=== PATIENT | male | born 1955 | race Caucasian/White ===

== ENCOUNTER 2017-07-26 07:49 | Emergency (ER) | payer BC ==
[2017-07-26 08:02] VITALS: BP 142/93
--- NOTE | 2017-07-26 08:14 | UC ---
Throat Pain/Nasal [place] HPI - HPI Summary HPI Summary: sore throat x 1 week right side sore throat and jaw pain recent tooth extraction right upper molar no fever, no chills, no cough or nasal congestion - History of Current Complaint Chief Complaint: UCGeneralIllness Stated Complaint: SORE THROAT, HEADACHE Time Seen by Provider: 07/26/17 07:55 Hx Obtained From: Patient Onset/Duration: Gradual Onset, Lasting Days - 3, Still Present Severity: Moderate Cough: None Associated Signs & Symptoms: Negative: Dysphagia, FB Sensation, Drooling, Wheezing, Hoarseness, Sinus Discomfort, Nasal Discharge, Fever, Vomiting, Rash - Allergies/Home Medications Allergies/Adverse Reactions: Allergies Allergy/AdvReac Type Severity Reaction Status Date / Time environmental allergies Allergy Congestion Uncoded 07/26/17 08:11 Home Medications: Home Medications Ibuprofen TAB* [Advil TAB*] 400 mg PO Q6H PRN 07/26/17 [History Confirmed ] PMH/Surg Hx/FS Hx/Imm Hx Previously Healthy: Yes - Surgical History Surgical History: Yes Surgery Procedure, Year, and Place: Left Inguinal Herniorrhaphy, 2016, [place] ; Right arm bicep tendon 2010. Right knee 2004 - Family History Known Family History: Negative: Diabetes - Social History Alcohol Use: None Substance Use Type: None Smoking Status (MU): Never Smoked Tobacco - Immunization History Most Recent Influenza Vaccination: Not the Season Review of Systems Constitutional: Negative Skin: Negative Eyes: Negative ENT: Negative Respiratory: Negative Cardiovascular: Negative Is Patient Immunocompromised?: No All Other Systems Reviewed And Are Negative: Yes Physical Exam Triage Information Reviewed: Yes Appearance: Well-Appearing, No Pain Distress, Well-Nourished Vital Signs: Initial Vital Signs Temp 97.7 F 07/26/17 07:55 Pulse 76 07/26/17 07:55 Resp 16 07/26/17 07:55 BP 142/93 07/26/17 07:55 Pulse Ox 99 07/26/17 07:55 Vital Signs Reviewed: Yes Eyes: Positive: Conjunctiva Clear ENT: Positive: Normal ENT inspection, Hearing grossly normal, Pharynx normal, Other: - tenderness right TMJ Dental Exam: Normal Neck exam: Normal Neck: Positive: Supple, Nontender Respiratory: Positive: Chest non-tender, Lungs clear, Normal breath sounds Cardiovascular: Positive: RRR, No Murmur, Pulses Normal Skin Exam: Normal Throat Pain/Nasal Course/Dx - Differential Dx/Diagnosis Provider Diagnoses: TMJ Discharge - Discharge Plan Condition: Stable Disposition: HOME Prescriptions: Naproxen [Naproxen 500 mg] 500 mg PO BID #20 tab Patient Education Materials: Temporomandibular Disorder (ED) Referrals: Jr BUSH,Mitchel Bass [Primary Care Provider] - 7 Days
== END 2017-07-26 08:20 | disposition home or self-care (01) ==
LOC: UCCORT 07:49
DX: M26.601 Right temporomandibular joint disorder, unspecified (principal)
CPT/HCPCS: 99212; G0463

== ENCOUNTER 2018-06-07 08:28 | Emergency (ER) | payer BC ==
[2018-06-07 09:15] VITALS: BP 152/91
--- NOTE | 2018-06-07 10:27 | UC ---
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 Productive cough with clear secretions. " Has significant history of sinus infections. Usually needs amoxicillin. Teeth hurt. More pain when bending forward. Denies fevers and chills. No wheezing. Cough is not significant. Feels fine otherwise. - - History of Current Complaint Chief Complaint: UCRespiratory Stated Complaint: SINUS CONGESTION Time Seen by Provider: 06/07/18 10:06 Pain Intensity: 0 - Allergies/Home Medications Allergies/Adverse Reactions: Allergies Allergy/AdvReac Type Severity Reaction Status Date / Time environmental allergies Allergy Congestion Uncoded 06/07/18 09:10 Home Medications: Home Medications diphenhydrAMINE HCl [Benadryl Allergy] 25 mg PO ONCE PRN 06/07/18 [History Confirmed 06/07/18] PMH/Surg Hx/FS Hx/Imm Hx Previously Healthy: Yes - Surgical History Surgical History: Yes Surgery Procedure, Year, and Place: Left Inguinal Herniorrhaphy, 2016, [place] ; Right arm bicep tendon 2010. Right knee 2004 - Family History Known Family History: Negative: Diabetes - Social History Alcohol Use: None Substance Use Type: None Smoking Status (MU): Never Smoked Tobacco - Immunization History Most Recent Influenza Vaccination: Not the 2016/2017 Season Review of Systems Constitutional: Negative Skin: Negative Eyes: Negative ENT: Nasal Discharge, Sinus Congestion, Sinus Pain/Tenderness Respiratory: Cough Cardiovascular: Negative Gastrointestinal: Negative Genitourinary: Negative Motor: Negative Neurovascular: Negative Musculoskeletal: Negative Neurological: Negative Psychological: Negative Is Patient Immunocompromised?: No All Other Systems Reviewed And Are Negative: Yes Physical Exam Triage Information Reviewed: Yes Appearance: Well-Appearing, No Pain Distress, Well-Nourished - Very pleasant Vital Signs: Initial Vital Signs Temp 98 F 06/07/18 09:11 Pulse 80 06/07/18 09:11 Resp 14 06/07/18 09:11 BP 152/91 06/07/18 09:11 Pulse Ox 99 06/07/18 09:11 Vital Signs Reviewed: Yes Eye Exam: Normal ENT Exam: Normal ENT: Positive: Nasal congestion, TMs normal, Sinus tenderness. Negative: Pharyngeal erythema, Tonsillar swelling, Tonsillar exudate, Hoarse voice Neck exam: Normal Neck: Positive: Supple, Nontender, No Lymphadenopathy Respiratory Exam: Normal Respiratory: Positive: Lungs clear, Normal breath sounds, No respiratory distress, No accessory muscle use. Negative: Crackles, Rhonchi, Stridor, Wheezing Cardiovascular Exam: Normal Cardiovascular: Positive: RRR Abdomen Description: Positive: Nontender, Soft Musculoskeletal Exam: Normal Neurological Exam: Normal Psychological Exam: Normal Skin Exam: Normal Throat Pain/Nasal Course/Dx - Differential Dx/Diagnosis Differential Diagnosis/HQI/PQRI: Sinusitis, URI Provider Diagnoses: Sinusitis Discharge - Sign-Out/Discharge Documenting (check all that apply): Patient Departure - Discharge Plan Condition: Stable Disposition: HOME Prescriptions: Amoxicillin PO (*) [Amoxicillin 875 MG (*)] 875 mg PO BID #20 tab Patient Education Materials: Sinusitis (ED) Referrals: Jeramie Vazquez DO [Primary Care Provider] - 1 Week Additional Instructions: Make sure to take a probiotic daily while on antibiotics to help prevent a potential complication of antibiotic use called c diff. Some well known brands that can be found OTC are florastor, align and Voltaix health. Make sure to complete the entire prescription unless advised otherwise by your health care provider. - Billing Disposition and Condition Condition: STABLE Disposition: Home
== END 2018-06-07 10:41 | disposition home or self-care (01) ==
LOC: UCCORT 08:28
DX: J32.9 Chronic sinusitis, unspecified (principal)
CPT/HCPCS: 99212; G0463

== ENCOUNTER 2019-11-05 10:43 | Emergency (ER) | payer BC, OTHER ==
[2019-11-05 11:12] VITALS: BP 144/103
--- NOTE | 2019-11-05 11:25 | UC ---
Head Injury HPI - HPI Summary HPI Summary: 64 yo man, lacerated the left side of his head when he hit it against a pipe in a crawl space this morning. No headache, visual changes, dizziness or weakness, with no prior hx of concussion. Tetanus is up to date. - History Of Current Complaint Chief Complaint: UCLaceration Stated Complaint: WC HEAD INJURY Time Seen by Provider: 11/05/19 11:16 Hx Obtained From: Patient Onset/Duration: Sudden Onset, Lasting Hours Severity Currently: Mild Severity Initially: Mild Pain Intensity: 2 Character: Throbbing Aggravating Factor(s): Nothing Alleviating Factor(s): Nothing Associated Signs And Symptoms: Positive: Negative - Risk Factors SDH Risk Factor: Negative - Allergies/Home Medications Allergies/Adverse Reactions: Allergies Allergy/AdvReac Type Severity Reaction Status Date / Time No Known Allergies Allergy Verified 11/05/19 11:07 PMH/Surg Hx/FS Hx/Imm Hx Previously Healthy: Yes - Surgical History Surgical History: Yes Surgery Procedure, Year, and Place: Left Inguinal Herniorrhaphy, 2016, [place] ; Right arm bicep tendon 2010. Right knee 2004 - Family History Known Family History: Positive: Non-Contributory Negative: Diabetes - Social History Occupation: Employed Full-time Lives: With Family Alcohol Use: None Substance Use Type: None Smoking Status (MU): Never Smoked Tobacco - Immunization History Most Recent Influenza Vaccination: Not the Season Most Recent Tetanus Shot: 01/2019 Review of Systems All Other Systems Reviewed And Are Negative: Yes Constitutional: Positive: Negative Skin: Positive: Other - laceration left scalp Eyes: Positive: Negative ENT: Positive: Negative Respiratory: Positive: Negative Cardiovascular: Positive: Negative Gastrointestinal: Positive: Negative Genitourinary: Positive: Negative Motor: Positive: Negative Neurovascular: Positive: Negative Musculoskeletal: Positive: Negative Neurological: Positive: Headache - mild at site of impact Psychological: Positive: Negative Is Patient Immunocompromised?: No Physical Exam Triage Information Reviewed: Yes Appearance: Well-Appearing, Pain Distress - mild Vital Signs: Initial Vital Signs Temp 98.6 F 11/05/19 11:06 Pulse 88 11/05/19 11:06 Resp 16 11/05/19 11:06 BP 144/103 11/05/19 11:06 Pulse Ox 97 11/05/19 11:06 Eye Exam: Other - SAMANTHA, normal EOM, no photophobia Eyes: Positive: Conjunctiva Clear ENT: Positive: Pharynx normal, TMs normal Dental Exam: Normal Neck: Positive: Supple, Nontender, No Lymphadenopathy Respiratory: Positive: Lungs clear, Normal breath sounds Cardiovascular: Positive: RRR, No Murmur Musculoskeletal Exam: Normal Neurological Exam: Other - CNII-XII normal. Gait normal. No pronator drift Neurological: Positive: Alert, Muscle Tone Normal Psychological Exam: Normal Skin Exam: Other - laceration left scalp (male pattern baldness--laceration is outside of hairline). Procedures - Laceration/Wound Repair 1 Location: head Description: Irregular - L-shaped laceration, 3 cm in length with approximately 6 mm short arm. Anesthesia: Local - 4 cc injected, 2.0% Betadine Prep?: Yes Laceration/Wound Explored: clean Closure: Single Layer Suture Type: Prolene Number of Sutures: 4 Layer Closure?: No Sterile Dressing Applied?: Yes Head Injury Course/Dx - Course Course Of Treatment: Appropriate time out was performed and verbal consent given. Laceration repaired under sterile conditions, with injection of 4 cc of 2% lidocaine, using 4 interrupted sutures. - Differential Dx/Diagnosis Differential Diagnosis/HQI/PQRI: Concussion Without LOC, Laceration Provider Diagnosis: Laceration of scalp without complication Discharge ED - Sign-Out/Discharge Documenting (check all that apply): Patient Departure All imaging exams completed and their final reports reviewed: No Studies - Discharge Plan Condition: Stable Disposition: HOME Patient Education Materials: Laceration (ED), Care For Your Stitches (ED) Referrals: Jeramie Vazquez DO [Primary Care Provider] - Additional Instructions: Please have the sutures removed in 9 or 10 days; you can return here to have this done. Keep the wound clean and dry. Infection risk is low, but follow up if there is increasing pain, redness or drainage. You do not presently show any signs to suggest concussion, but please seek re- evaluation if you have increasing headache, dizziness or neurological symptoms. - Billing Disposition and Condition Condition: STABLE Disposition: Home
[2019-11-05] MEDS ORDERED: Lidocaine 2% PF * 5 ML VIAL INJ ONE (11:26)
== END 2019-11-05 12:18 | disposition home or self-care (01) ==
LOC: UCCORT 10:43
DX: S01.01XA Laceration without foreign body of scalp, initial encounter (principal); W22.8XXA Striking against or struck by other objects, initial encounter; Y92.9 Unspecified place or not applicable
CPT/HCPCS: 12002; 99211; G0463

== ENCOUNTER 2019-11-15 09:26 | Emergency (ER) | payer SELFPAY ==
[2019-11-15 10:11] VITALS: BP 151/87
--- NOTE | 2019-11-15 10:12 | UC ---
Skin Complaint HPI - HPI Summary HPI Summary: 64-year-old male comes in with a chief complaint of suture removal. Patient had a scalp laceration on November 05, 2019 and was here and got 4 sutures placed on the left side of his scalp. No complaint of any infection symptoms. The sutures do itch. - History of Current Complaint Chief Complaint: UCSkin Time Seen by Provider: 11/15/19 10:05 Stated Complaint: SUTURE REMOVAL - DONE HERE Pain Intensity: 0 - Allergy/Home Medications Allergies/Adverse Reactions: Allergies Allergy/AdvReac Type Severity Reaction Status Date / Time No Known Allergies Allergy Verified 11/15/19 10:11 PMH/Surg Hx/FS Hx/Imm Hx Previously Healthy: Yes - Surgical History Surgical History: Yes Surgery Procedure, Year, and Place: Left Inguinal Herniorrhaphy, 2016, [place] ; Right arm bicep tendon 2010. Right knee 2004 - Family History Known Family History: Positive: Non-Contributory Negative: Diabetes - Social History Alcohol Use: None Substance Use Type: None Smoking Status (MU): Never Smoked Tobacco - Immunization History Most Recent Influenza Vaccination: Not the Season Most Recent Tetanus Shot: 01/2019 Review of Systems All Other Systems Reviewed And Are Negative: Yes Constitutional: Positive: Negative Skin: Positive: Other - SEE HPI Eyes: Positive: Negative ENT: Positive: Negative Respiratory: Positive: Negative Cardiovascular: Positive: Negative Gastrointestinal: Positive: Negative Motor: Positive: Negative Neurovascular: Positive: Negative Musculoskeletal: Positive: Negative Neurological: Positive: Negative Psychological: Positive: Negative Is Patient Immunocompromised?: No Physical Exam Triage Information Reviewed: Yes Appearance: Well-Appearing, No Pain Distress, Well-Nourished Vital Signs: Initial Vital Signs Temp 99 F 11/15/19 10:06 Pulse 96 11/15/19 10:06 Resp 20 11/15/19 10:06 BP 151/87 11/15/19 10:06 Pulse Ox 98 11/15/19 10:06 Vital Signs Reviewed: Yes Eye Exam: Normal Eyes: Positive: Conjunctiva Clear Neck: Positive: Supple Respiratory: Positive: No respiratory distress Musculoskeletal: Positive: Strength Intact, ROM Intact Neurological: Positive: Alert, Muscle Tone Normal Psychological: Positive: Age Appropriate Behavior Skin: Positive: Other - On the left scalp there is a healing 3 cm laceration with 4 simple interrupted sutures in it. No drainage no erythema no signs of infection. I removed the 4 sutures. Course/Dx - Diagnoses Provider Diagnosis: Encounter for removal of sutures Discharge ED - Sign-Out/Discharge Documenting (check all that apply): Patient Departure All imaging exams completed and their final reports reviewed: No Studies - Discharge Plan Condition: Stable Disposition: HOME Patient Education Materials: Stitches Removal (ED) Referrals: Jeramie Vazquez DO [Primary Care Provider] - Additional Instructions: FOLLOW UP WITH YOUR DOCTOR IF NOT COMPLETELY IMPROVED. GET REEVALUATED SOONER IF NOT IMPROVING OR WORSE OR ANY QUESTIONS OR CONCERNS. - Billing Disposition and Condition Condition: STABLE Disposition: Home
== END 2019-11-15 10:17 | disposition home or self-care (01) ==
LOC: UCCORT 09:26
DX: S01.01XD Laceration without foreign body of scalp, subsequent encounter (principal); X58.XXXD Exposure to other specified factors, subsequent encounter